=== PATIENT | female | born 1980 | race Caucasian/White ===

== ENCOUNTER 2023-04-08 12:58 | Emergency (ER) | payer OTHER, SELFPAY ==
[2023-04-08 13:03] VITALS: BP 149/91; PULSE 85; RESP 18; TEMP 36.5; O2SAT 99; BMI 31.9
--- NOTE | 2023-04-08 13:17 | DI.CT.S_ITS ---
PROCEDURE: CT UE RT WO CON INDICATIONS: Right Hand injury TECHNIQUE: Noncontrast 1 mm axial sections acquired through the carpal bones and phalanges, with coronal and sagittal reformats. COMPARISON: None. FINDINGS: Image quality: Excellent. Bones: There is dorsal dislocation at 3rd PIP joint. Curvilinear calcification over ulnar and volar aspect of 3rd proximal phalangeal head is seen concerning for acute chip fracture involving 3rd middle phalangeal base. No other fracture or dislocation is seen. No suspicious bony lesions. Soft tissues: Soft tissue laceration over volar aspect of 3rd PIP joint is seen with small amount of subcutaneous emphysema and air within 3rd PIP joint . Multiple punctate calcifications are seen involving volar skin of 3rd digit at the level of 3rd proximal phalangeal head. No other abnormal soft tissue densities are seen. No gross full-thickness tendon rupture although attenuated flexor tendon of 3rd digit is noted at the level of 3rd PIP joint. IMPRESSION: 1. Dorsal dislocation at 3rd PIP joint. 2. Suggestion of chip fracture involving volar and ulnar aspect of 3rd middle phalangeal base. Laceration involving volar aspect of 3rd PIP joint is seen with underlying subcutaneous emphysema and air extending to 3rd PIP joint consistent with open fracture. 3. Small calcifications/radiodensities in superficial soft tissue over volar aspect of 3rd PIP joint which may represent tiny foreign bodies. 4. No other fracture or dislocation. No suspicious bony lesions. 5. No gross full-thickness tendon rupture. Suggestion of partial-thickness tear involving flexor tendon of 3rd digit at the level of 3rd PIP joint. Dictated by: Дмитрий Moore M.D. on 04/08/2023 at 14:01 Approved by: Дмитрий Moore M.D. on 04/08/2023 at 14:07
--- NOTE | 2023-04-08 13:22 | ED.UPPEXIN ---
HPI - Extremity Injury (Upper) <Obed Mtz PA-C - Last Filed: 04/08/23 16:13> General Chief Complaint: Extremity Injury, Upper Stated Complaint: compound finger fracture Time Seen by Provider: 04/08/23 13:02 Source: patient Mode of arrival: Ambulatory History of Present Illness HPI narrative: 42-year-old female with no reported past medical history presents to the ED with a right hand injury sustained just prior to arrival. Patient states that she was tied pooling, when she slipped on some algae, her right hand got stuck between the floor and a rock. Patient endorses pain in the right hand. Patient also sustained some injuries to her bilateral feet. Patient denies numbness, tingling, weakness. Patient is a violinist by profession. Patient has had a prior left ring finger fracture that was repaired by a hand surgeon in [place]. Related Data Previous Rx's Medication Instructions Recorded cephalexin 500 mg tablet 500 mg PO TID 5 days #15 tabs 04/08/23 oxycodone-acetaminophen 5 mg-325 1 tab PO Q4-6H PRN pain #20 tabs 04/08/23 mg tablet (Endocet) Allergies Allergy/AdvReac Type Severity Reaction Status Date / Time peanut Allergy Anaphylaxis Verified 04/08/23 13:03 escitalopram [From Lexapro] AdvReac Hives Verified 04/08/23 13:03 Review of Systems <Obed Mtz PA-C - Last Filed: 04/08/23 16:13> Review of Systems ROS Unobtainable: All systems reviewed & are unremarkable except as noted in HPI and below Constitutional Constitutional: Denies chills, Denies fatigue, Denies fever(s), Denies frequent falls, Denies lethargy and Denies weakness Eyes Eyes: Denies change in vision, Denies eye discharge, Denies irritation and Denies loss of vision ENT Ears, Nose, Mouth, and Throat: Denies change in voice, Denies dizziness, Denies neck pain, Denies sore throat and Denies throat swelling Cardiovascular Cardiovascular: Denies chest pain, Denies irregular heart rhythm, Denies lightheadedness, Denies palpitations, Denies dyspnea, Denies dyspnea on exertion and Denies orthopnea Respiratory Respiratory: Denies cough, Denies dyspnea, Denies dyspnea on exertion and Denies wheezing Gastrointestinal Gastrointestinal: Denies abdominal pain, Denies change in bowel habits, Denies diarrhea, Denies nausea and Denies vomiting Genitourinary Genitourinary: Denies hematuria, Denies flank pain, Denies urinary incontinence and Denies urinary urgency Musculoskeletal Musculoskeletal: Denies back pain, Denies muscle weakness, Denies neck pain, Denies numbness and Denies tingling Comments: Right hand injury, injuries to bilateral feet Integumentary/Breasts Skin/Breast: Denies pruritus, Denies erythema, Denies rash and Denies wounds Neurologic Neurologic: Denies behavioral changes, Denies confusion, Denies dizziness, Denies frequent falls, Denies loss of vision, Denies numbness, Denies tingling and Denies weakness Psychiatric Psychiatric: Denies anxiety, Denies behavioral changes, Denies confusion, Denies depression, Denies homicidal ideation and Denies suicidal ideation Endocrine Endocrine: Denies fatigue, Denies flushing and Denies palpitations Hematologic/Lymphatic Hematologic/Lymphatic: Denies easy bruising Allergic/Immunologic Allergic/Immunologic: Denies urticaria, Denies throat swelling and Denies wheezing Patient History <Obed Mtz PA-C - Last Filed: 04/08/23 16:13> Social History Smoking Status: Never smoker Smoking Status: Never smoker alcohol intake frequency: 0-2 drinks per day Substance Use Type: marijuana Exam <Obed Mtz PA-C - Last Filed: 04/08/23 16:13> Narrative Exam Narrative: Const General:?cooperative, healthy appearing and comfortable [facility] Head:?normal to inspection Ears:?hearing grossly normal bilaterally Nose:?external nose normal Face and sinus:?normal facial exam and sinuses nontender Mouth:?oral mucosae normal Throat:?posterior oropharynx normal Eyes General:?appearance normal, both eyes and all related structures Neck Neck:?normal visual inspection and no lymphadenopathy noted Resp Effort & Inspection:?normal respiratory effort Auscultation:?clear to auscultation bilaterally Cardio Rate:?regular rate Rhythm:?regular rhythm Musculoskeletal There is an open laceration to the volar aspect of the right 3rd digit along the PIP joint. A tendon is visualized, does not appear completely ruptured. Patient is able to move her finger but is severely limited by pain. Strength and sensation is intact. Patient is neurovascularly intact. Neuro General:?patient alert, patient awake and patient oriented x3 Initial Vital Signs Initial Vital Signs: Vital Signs Temperature 97.7 F 04/08/23 13:03 Pulse Rate 85 04/08/23 13:03 Respiratory Rate 18 04/08/23 13:03 Blood Pressure 149/91 H 04/08/23 13:03 Pulse Oximetry 99 04/08/23 13:03 Oxygen Delivery Method Room Air 04/08/23 13:03 <DO Shana Mejia Last Filed: 04/08/23 16:42> Initial Vital Signs Initial Vital Signs: Vital Signs Temperature 97.7 F 04/08/23 13:03 Pulse Rate 85 04/08/23 13:03 Respiratory Rate 18 04/08/23 13:03 Blood Pressure 149/91 H 04/08/23 13:03 Pulse Oximetry 99 04/08/23 13:03 Oxygen Delivery Method Room Air 04/08/23 13:03 Procedures <RAY Root Last Filed: 04/08/23 16:13> Laceration Repair Laceration 1: Site: hand (right 3rd finger) Side (If applicable): right Size (cm): 1 Local Anesthetic: lidocaine 2% Amount of anesthesia used (mL): 2 Pre-repair: wound explored and irrigated extensively Skin layer closed with: vicryl Skin layer suture size: 5-0 Number of sutures: 4 Technique: simple, interrupted <DO Shana Mejia Last Filed: 04/08/23 16:42> Nerve Block Nerve Block 1: Time out performed: Yes Local Anesthetic: lidocaine 1% Amount of anesthesia used (mL): 5 Side: right Nerve Blocks: digital Procedure Successful: Yes Patient Tolerated Procedure: Well Orthopedic Joint Reduction Joint #1: Time Out Performed: Yes Side: right Joint Reduction Location: finger Local Anesthesia: lidocaine 1% Technique used: direct manipulation Post-reduction neuro exam: no change Post-reduction vascular: no change Post Reduction X-Ray Obtained: Yes Post Reduction X-Ray Results: reduced Splint Applied: Yes Orthopedic Splinting/Casting Injury #1: Side: right Upper Extremity Injury Location: finger Upper Extremity Immobilizer: aluminum form splint Post splinting neuro exam: intact Post splinting vascular exam: intact Placed by: Provider Course <RAY Root Last Filed: 04/08/23 16:13> Orders Ordered: ED Orders 04/08/23 13:17 CT UE RT wo con Stat 04/08/23 13:50 XR foot LT min 3V Stat XR foot RT min 3V Stat 04/08/23 14:40 XR finger RT min 2V Stat Discontinued Medications Diphtheria/Tetanus/Acell Pertussis (Tet,Diph,Pertuss(Acell),Vac/Pf 0.5 Ml Syringe) 0.5 ml IM .ONCE ONE Stop: 04/08/23 13:27 Last Admin: 04/08/23 14:02 Dose: 0.5 ml Documented By: DONOVAN Sodium Chloride (Normal Saline 0.9%) 1,000 mls @ 1,000 mls/hr IV BOLUS ONE Stop: 04/08/23 16:08 Last Infusion: 04/08/23 16:38 Dose: 0 mls/hr Documented By: Admin: 04/08/23 15:13 Dose: 1,000 mls/hr Documented By: CHRIS Lidocaine HCl (Lidocaine 2% Inj Sdv 5ml) 5 ml INJ INTRA-OP ONE Stop: 04/08/23 14:15 Last Admin: 04/08/23 14:42 Dose: 5 ml Documented By: DONOVAN Lidocaine HCl (Lidocaine 2% Inj Sdv 5ml) 5 ml INJ INTRA-OP ONE Stop: 04/08/23 15:41 Last Admin: 04/08/23 15:59 Dose: 2 ml Documented By: ARTEM Morphine Sulfate (Morphine 4 Mg/Ml Inj) 4 mg IV NOW ONE Stop: 04/08/23 13:19 Last Admin: 04/08/23 13:25 Dose: 4 mg Documented By: ARTEM Morphine Sulfate (Morphine 4 Mg/Ml Inj) 4 mg IV NOW ONE Stop: 04/08/23 16:03 Last Admin: 04/08/23 16:06 Dose: 4 mg Documented By: ARTEM Ondansetron HCl (Ondansetron 4 Mg/2 Ml Inj) 4 mg IV NOW ONE Stop: 04/08/23 15:10 Last Admin: 04/08/23 15:13 Dose: 4 mg Documented By: CHRIS Vital Signs Vital signs: Vital Signs - 8 hr 04/08/23 13:03 04/08/23 13:28 04/08/23 14:42 Temperature 97.7 F Pulse Rate 85 Respiratory Rate 18 Blood Pressure 149/91 H 161/104 H 138/93 H Pulse Oximetry 99 Oxygen Delivery Method Room Air 04/08/23 16:13 Temperature Pulse Rate Respiratory Rate Blood Pressure 150/92 H Pulse Oximetry Oxygen Delivery Method <Ravin Culver DO - Last Filed: 04/08/23 16:42> Orders Ordered: ED Orders 04/08/23 13:17 CT UE RT wo con Stat 04/08/23 13:50 XR foot LT min 3V Stat XR foot RT min 3V Stat 04/08/23 14:40 XR finger RT min 2V Stat Discontinued Medications Diphtheria/Tetanus/Acell Pertussis (Tet,Diph,Pertuss(Acell),Vac/Pf 0.5 Ml Syringe) 0.5 ml IM .ONCE ONE Stop: 04/08/23 13:27 Last Admin: 04/08/23 14:02 Dose: 0.5 ml Documented By: DONOVAN Sodium Chloride (Normal Saline 0.9%) 1,000 mls @ 1,000 mls/hr IV BOLUS ONE Stop: 04/08/23 16:08 Last Infusion: 04/08/23 16:38 Dose: 0 mls/hr Documented By: Admin: 04/08/23 15:13 Dose: 1,000 mls/hr Documented By: CHRIS Lidocaine HCl (Lidocaine 2% Inj Sdv 5ml) 5 ml INJ INTRA-OP ONE Stop: 04/08/23 14:15 Last Admin: 04/08/23 14:42 Dose: 5 ml Documented By: DONOVAN Lidocaine HCl (Lidocaine 2% Inj Sdv 5ml) 5 ml INJ INTRA-OP ONE Stop: 04/08/23 15:41 Last Admin: 04/08/23 15:59 Dose: 2 ml Documented By: ARTEM Morphine Sulfate (Morphine 4 Mg/Ml Inj) 4 mg IV NOW ONE Stop: 04/08/23 13:19 Last Admin: 04/08/23 13:25 Dose: 4 mg Documented By: ARTEM Morphine Sulfate (Morphine 4 Mg/Ml Inj) 4 mg IV NOW ONE Stop: 04/08/23 16:03 Last Admin: 04/08/23 16:06 Dose: 4 mg Documented By: ARTEM Ondansetron HCl (Ondansetron 4 Mg/2 Ml Inj) 4 mg IV NOW ONE Stop: 04/08/23 15:10 Last Admin: 04/08/23 15:13 Dose: 4 mg Documented By: CHRIS Vital Signs Vital signs: Vital Signs - 8 hr 04/08/23 13:03 04/08/23 13:28 04/08/23 14:42 Temperature 97.7 F Pulse Rate 85 Respiratory Rate 18 Blood Pressure 149/91 H 161/104 H 138/93 H Pulse Oximetry 99 Oxygen Delivery Method Room Air 04/08/23 16:13 Temperature Pulse Rate Respiratory Rate Blood Pressure 150/92 H Pulse Oximetry Oxygen Delivery Method MDM - Extremity Injury (Upper) <Obed Mtz PA-C - Last Filed: 04/08/23 16:13> [facility] Narrative Medical decision making narrative: 42-year-old female with no reported past medical history presents to the ED with a right hand injury sustained just prior to arrival. Concern for open fracture versus dislocation versus musculoskeletal sprain/strain versus tendon rupture versus laceration versus other. Will obtain CT of the hand. CT of the hand shows a dorsal dislocation of the 3rd PIP joint of the right hand. There is also a suggestion of a chip fracture involving volar and ulnar aspect of the 3rd middle phalangeal base. There is a laceration involving volar aspect of the 3rd PIP joint with underlying subcutaneous emphysema and air extending to the 3rd PIP joint consistent with an open fracture. There are small calcifications/radiodensities in superficial soft tissue over volar aspect of 3rd PIP joint which may represent tiny foreign bodies. There is a suggestion of partial-thickness tear involving the flexor tendon of the 3rd digit at the level of the 3rd PIP joint. No gross full-thickness tendon rupture. Patient's dislocation was reduced by Dr. Ravin Culver. Wound was copiously irrigated. Laceration was loosely repaired, finger splint applied to immobilize, bandaged. PO antibotics prescribed. Percocet prescribed for pain. Tetanus was updated. Recommend follow-up with hand surgeon as soon as possible. Patient was able to get in touch with her hand surgeon in [place], they will reach out to her on Saturday, will see her the day after. ED return precautions discussed with patient. Patient verbalized understanding. Medical records reviewed: Yes <Ravin Culver DO - Last Filed: 04/08/23 16:42> [facility] Narrative Medical decision making narrative: 42-year-old female with no reported past medical history presents to the ED with a right hand injury sustained just prior to arrival. Concern for open fracture versus dislocation versus musculoskeletal sprain/strain versus tendon rupture versus laceration versus other. Will obtain CT of the hand. CT of the hand shows a dorsal dislocation of the 3rd PIP joint of the right hand. There is also a suggestion of a chip fracture involving volar and ulnar aspect of the 3rd middle phalangeal base. There is a laceration involving volar aspect of the 3rd PIP joint with underlying subcutaneous emphysema and air extending to the 3rd PIP joint consistent with an open fracture. There are small calcifications/radiodensities in superficial soft tissue over volar aspect of 3rd PIP joint which may represent tiny foreign bodies. There is a suggestion of partial-thickness tear involving the flexor tendon of the 3rd digit at the level of the 3rd PIP joint. No gross full-thickness tendon rupture. Patient's dislocation was reduced by Dr. Ravin Culver. Wound was copiously irrigated. Laceration was loosely repaired, finger splint applied to immobilize, bandaged. PO antibotics prescribed. Percocet prescribed for pain. Tetanus was updated. Recommend follow-up with hand surgeon as soon as possible. Patient was able to get in touch with her hand surgeon in [place], they will reach out to her on Saturday, will see her the day after. ED return precautions discussed with patient. Patient verbalized understanding. Medical records reviewed: Yes Dr Culver: I was involved in this patient's care. I did reduce the dorsal dislocation of the PIP joint of her right middle finger. Patient tolerated the procedure well. On my evaluation it does appear that her flexor tendon is intact however she does have instability dorsally with extension of the finger. The laceration was closed loosely by APC. Splint was placed by APC. Will place the patient on antibiotics and have her follow-up with orthopedics as an outpatient. Discharge Plan Departure Patient Disposition: Home Clinical Impression: Finger fracture, right Instructions: DI for Finger Fracture Activity Restrictions/Additional Instructions: You were evaluated in the ED today for a finger injury. The CT shows a chip fracture as well as a dislocation of the 3rd finger. The might be partial injury to the tendon but no full rupture. Your dislocation was reduced in the ED, your laceration was copiously cleaned out and loosely repaired. Please follow-up with your hand surgeon as soon as possible. It appears that you have a appointment to see them on . You may take the prescribed pain medications for the discomfort. Please keep the wound clean and dry until you see the hand surgeon. Return to the ED if you experience any numbness, tingling, weakness. Prescriptions: New oxycodone-acetaminophen [Endocet] 5-325 mg tablet 1 tab PO Q4-6H PRN (Reason: pain) Qty: 20 0RF cephalexin 500 mg tablet 500 mg PO TID 5 Days Qty: 15 0RF Referrals: Miscellaneous,Doctor, MD [Primary Care Provider] - Stand Alone Forms: Patient Portal/API
[2023-04-08] MEDS: MORPHINE 4 MG/ML INJ IV ×2 (13:25→16:06)
[2023-04-08 13:28] VITALS: BP 161/104
--- NOTE | 2023-04-08 13:50 | DI.RAD.S_ITS ---
PROCEDURE: XR FOOT RT MIN 3V INDICATIONS: Fall TECHNIQUE: 3 views of the foot were acquired. COMPARISON: None. FINDINGS: Bones: No fractures or dislocations. No suspicious bony lesions. Soft tissues: No tibiotalar joint effusion. Achilles tendon appears normal. IMPRESSION: No acute bony abnormality. Dictated by: Geovany Carlson M.D. on 04/08/2023 at 15:46 Approved by: Geovany Carlson M.D. on 04/08/2023 at 15:46
--- NOTE | 2023-04-08 13:50 | DI.RAD.S_ITS ---
PROCEDURE: XR FOOT LT MIN 3V INDICATIONS: Fall TECHNIQUE: 3 views of the foot were acquired. COMPARISON: None. FINDINGS: Bones: No fractures or dislocations. No suspicious bony lesions. Soft tissues: No tibiotalar joint effusion. Achilles tendon appears normal. IMPRESSION: No acute left foot fracture or dislocation. No gross soft tissue abnormalities. Dictated by: Дмитрий Moore M.D. on 04/08/2023 at 16:03 Approved by: Дмитрий Moore M.D. on 04/08/2023 at 16:08
[2023-04-08] MEDS: TET,DIPH,PERTUSS(ACELL),VAC/PF 0.5 ML SYRINGE IM (14:02)
--- NOTE | 2023-04-08 14:40 | DI.RAD.S_ITS ---
PROCEDURE: XR FINGER RT MIN 2V INDICATIONS: post reduction TECHNIQUE: AP hand, 2 views of the 3rd finger(s) acquired. COMPARISON: None. FINDINGS: Bones: Interval reduction of the 3rd PIP joint, with normal alignment. A few fine regions of ossification are along the volar PIP joint, presumably small fracture fragments. Soft tissues: No suspicious soft tissue calcifications. IMPRESSION: Interval reduction, with normal alignment. Small grouping of calcification along the volar aspect of the PIP joint, presumably small fracture fragments. Dictated by: Geovany Carlson M.D. on 04/08/2023 at 15:44 Approved by: Geovany Carlosn M.D. on 04/08/2023 at 15:45
[2023-04-08 14:42] VITALS: BP 138/93
[2023-04-08] MEDS: LIDOCAINE 2% INJ SDV 5ML 5 ML INJ ×2 (14:42→15:59)
[2023-04-08] MEDS: LIDOCAINE 2% INJ SDV 5ML 5 ML (14:43)
[2023-04-08] MEDS: SODIUM CHLORIDE 0.9% 1,000 ML 1000 ML IV (15:13)
[2023-04-08] MEDS: ONDANSETRON 4 MG/2 ML INJ IV (15:13)
[2023-04-08 16:13] VITALS: BP 150/92
--- NOTE | 2023-04-08 16:38 | PC.NURSE ---
Pt traveling here from [place] and staying on [facility]. Pt was exploring tide pools when she lost her balance and lacerated her hand and foot on barnacles and abrasions to legs and arms. Assisted Obed Mtz, PAC with digital block of pts R hand 3rd digit. Reduced and XR'd for placement confirmation. Wound copiously irrigated. LAC loosely repaired by Obed and pt tolerated well. Dressed with gauze and a finger splint. Medicated for nausea and pain. Wounds on R great toe. irrigated and dressed. XR negative. Pt has a hand surgeon that she has used previously and has an appt with on . Tetanus updated. Pt ambulated to BR with steady gait. Disc made and imaging reports given to pt. NAD. IV discontinued. Pt ambulated out of ED with . Printed RX's given.
== END 2023-04-08 16:20 | disposition home or self-care (01) ==
PROVIDERS: Emergency Provider Student in an Organized Health Care Education/Training Program
DX: S62.602A Fracture of unspecified phalanx of right middle finger, initial encounter for closed fracture (principal); W01.198A Fall on same level from slipping, tripping and stumbling with subsequent striking against other object, initial encounter; Z23 Encounter for immunization
CPT/HCPCS: 12001; 26755; 73140; 73200; 73630; 90471; 96361; 96374; 96375; 96376; 99284; 90715; J2270; J2405